=== PATIENT | female | born 1960 | race Caucasian/White ===

== ENCOUNTER 2021-11-21 08:42 | Outpatient (REF) | payer OTHER, SELFPAY ==
[2021-11-21 11:33] LABS: MANUAL DIFF FLAG NO
[2021-11-21 11:40] LABS: Basophils Percent Auto 0.5 % (0-2); Eosinophils Percent Auto 0.7 % (0-4); Hematocrit 40.1 % (37.0-47.0); Hemoglobin 12.9 g/dl (12.0-16.0); Imm Gran Abs Auto 0.01 X10*3/uL (0.00-0.03); Imm Gran Pct Auto 0.2 % (0.0-0.4); Lymphocytes Absolute Auto 2.7 X10*3/uL (1.2-4.9); Lymphocytes Percent Auto 48.4 % (20-40); Mean Corpuscular HGB Conc 32.2 g/dl (31.0-35.0); Mean Corpuscular Hemoglobin 29.9 pg (27.0-33.0); Mean Corpuscular Volume 92.8 fL (80.0-98.0); Mean Platelet Volume 12.3 fL (9.4-12.3); Monocytes Absolute Auto 0.4 X10*3/uL (0.1-1.2); Monocytes Percent Auto 7.8 % (2-11); Neutrophils Absolute Auto 2.4 x10*3/uL (2.0-8.3); Neutrophils Percent Auto 42.4 % (45-73); Platelet Count 252 X10*3/uL (160-400); Red Blood Count 4.32 X10*6/uL (4.20-5.50); Red Cell Distribution Width 13.5 % (11.0-16.0); White Blood Count 5.5 X10*3/uL (4.8-10.8)
[2021-11-21 11:53] LABS: Alanine Aminotransferase 13 U/L (0-31); Albumin Level 4.2 g/dL (3.5-5.0); Alkaline Phosphatase 102 U/L (39-117); Anion Gap 12 (12-20); Aspartate Amino Transferase 18 U/L (5-31); Bilirubin Total 0.5 mg/dL (0.0-1.0); Blood Urea Nitrogen 13 mg/dL (9-16); Calcium 9.7 mg/dL (8.4-10.2); Carbon Dioxide 23 mmol/L (22-29); Chloride 107 mmol/L (96-108); Cholesterol 288 mg/dL; Estimated Glomerular Filt Rate > 60; Glucose Fasting 95 mg/dL (60-99); HDL Cholesterol 51 mg/dL; LDL Cholesterol Calculated 208 mg/dl; Potassium 4.2 mmol/L (3.3-5.1); Sodium 138 mmol/L (135-145); Total Protein 7.6 g/dL (6.5-8.0); Triglycerides 149 mg/dL
[2021-11-21 12:16] LABS: TSH reflex Free T4 2.35 uIU/mL (0.32-4.0)
== END 2021-11-21 08:43 | disposition home or self-care (01) ==
LOC: HO.HMGCLDS 08:42
PROVIDERS: PCP Internal Medicine; Visit Provider Internal Medicine
DX: Z00.01 Encounter for general adult medical examination with abnormal findings (principal); L81.9 Disorder of pigmentation, unspecified
CPT/HCPCS: 36415; 80053; 80061; 84443; 85025

== ENCOUNTER 2021-12-19 10:15 | Outpatient (REF) | payer OTHER, SELFPAY ==
--- NOTE | ~2021-12-19 | MM_ITS ---
EXAMINATION: MM SCREENING DIGITAL BREAST TOMOSYNTHESIS, BILATERAL CLINICAL INFORMATION: Screening. Asymptomatic. The lifetime risk of breast cancer based on the Tyrer-Cuzick Model is 6%. COMPARISON: Outside mammography: 03/28/2019, 05/10/2017 ([facility]). TECHNIQUE: Digital breast tomosynthesis is performed in both the craniocaudal and mediolateral oblique views along with computer-aided detection (CAD). Synthesized 2D images are generated from the tomosynthesis. FINDINGS: There are scattered areas of fibroglandular density (ACR BI-RADS breast composition Category b). There are no significant masses, abnormal calcifications, or other abnormalities. Parenchymal pattern is similar to the prior outside exams. There is no developing density or architectural abnormality. The axilla and skin contours are unremarkable. No significant changes. MM/MM tomosynthesis screening BI IMPRESSION: No mammographic evidence of malignancy. ASSESSMENT: BI-RADS 1: Negative RECOMMENDATION: Routine annual mammography screening. This patient's information was entered into a reminder system with a target due date for their next mammogram.
== END 2021-12-19 10:16 | disposition home or self-care (01) ==
LOC: HO.MAMMO 10:15
PROVIDERS: Visit Provider Internal Medicine
DX: Z12.31 Encounter for screening mammogram for malignant neoplasm of breast (principal)
CPT/HCPCS: 77063; 77067

== ENCOUNTER 2022-01-24 08:02 | Outpatient (REF) | payer OTHER, SELFPAY ==
[2022-01-24 12:14] LABS: Alanine Aminotransferase 17 U/L (0-31); Albumin Level 4.2 g/dL (3.5-5.0); Alkaline Phosphatase 109 U/L (39-117); Aspartate Amino Transferase 23 U/L (5-31); Bilirubin Direct 0.2 mg/dL (0.0-0.5); Bilirubin Total 0.4 mg/dL (0.0-1.0); Cholesterol 120 mg/dL; HDL Cholesterol 45 mg/dL; LDL Cholesterol Calculated 54 mg/dl; Total Protein 7.4 g/dL (6.5-8.0); Triglycerides 106 mg/dL
== END 2022-01-24 08:03 | disposition home or self-care (01) ==
LOC: HO.HMGCLDS 08:02
PROVIDERS: PCP Internal Medicine; Visit Provider Internal Medicine
DX: E78.9 Disorder of lipoprotein metabolism, unspecified (principal)
CPT/HCPCS: 36415; 80061; 80076

== ENCOUNTER 2023-06-04 06:53 | Outpatient (REF) | payer OTHER, SELFPAY | END 2023-06-04 06:54 | disposition home or self-care (01) | LOC: HO.HMGCLDS 06:53 | PROVIDERS: PCP Internal Medicine; Visit Provider Internal Medicine | DX: E78.9 Disorder of lipoprotein metabolism, unspecified (principal) | CPT/HCPCS: 36415; 80053; 80061; 85025 ==

== ENCOUNTER 2023-08-23 09:37 | Outpatient (AMB) | payer OTHER, SELFPAY ==
--- NOTE | 2023-08-23 09:59 | AM.OFFWIN_ITS ---
Intake Vital Signs 08/23/23 10:04 Weight 148 lb BP 128/74 Blood Pressure Location Rt brachial Position Sitting Pulse 93 Pulse Source Pulse Oximeter Pulse Oximetry (%) 97 Oxygen Delivery Method Room Air Intake Visit Reasons: EST/uti? Intake Note: Patient here for UTI which started Sunday and has tried a medicated duche which she states helped for a little while and then this morning she woke up her sx were back burning when urinating and lower abdomen discomfort. Patient Tobacco Use Status: Never used Tobacco Allergies No Known Allergies Allergy (Verified 08/23/23 10:06) Do you need a note to return to daycare/school/sports/work: No HPI HPI Comments History of Present Illness Details 63-year-old female who presents for urin charissa symptoms. Patient experiencing increased frequency burning pain with urination he was blood in the urine. Denies fevers or chills or back pain PFSH Family History Other Mental health disorder Social History Housing: House Patient Tobacco Use Status: Never used Tobacco e-Cigarette/Vaping Use: Never Used Current occupational status: unemployed Cognitive needs: No Hearing needs: No Vision needs: No Review of Systems Const All systems reviewed & are unremarkable except as noted in HPI and below Reports hematuria and Reports dysuria Physical Exam Vital Signs: Last Vital Signs Pulse 93 08/23/23 10:04 BP 128/74 08/23/23 10:04 Pulse Ox 97 08/23/23 10:04 Oxygen Delivery Method Room Air 08/23/23 10:04 Const General: cooperative, healthy appearing, no acute distress and alert GI Inspection: Yes normal to inspection Palpation (GI): Soft to palpation and nontender General: Yes no CVA tenderness Back/Spine/Pelvis Back: no CVA tenderness Results AMB Urinalysis, Automated UA Leukoctes 125 Ej/uL Last Edit by MOUSTAPHA Farah on 08/23/23 10: 12 UA Nitrite Negative Last Edit by MOUSTAPHA Farah on 08/23/23 10:12 UA Urobilinogen 0.2 mg/dL Last Edit by MOUSTAPHA Farah on 08/23/23 10:12 UA Protein 30 mg/dL Last Edit by Carlos Enrique [facility] on 08/23/23 10:12 UA pH 8.0 Last Edit by Carlos Enrique [facility] on 08/23/23 10:12 UA Blood 200 Venkat/uL Last Edit by Carlos Enrique [facility] on 08/23/23 10:12 UA Specific [place] 1.010 Last Edit by Carlos Enrique [facility] on 08/23/23 10:12 UA Ketone Negative Last Edit by Carlos Enrique [facility] on 08/23/23 10:12 UA Bilirubin 0 mg/dL Last Edit by Carlos Enrique [facility] on 08/23/23 10:12 UA Glucose 0 mg/dL Last Edit by Carlos Enrique [facility] on 08/23/23 10:12 Results Reviewed Results Reviewed: Laboratory Last Values Urine pH (Auto) 8.0 08/23/23 10:11 Specific [place] (Auto) 1.010 08/23/23 10:11 Urine Protein (Auto) 30 mg/dL 08/23/23 10:11 Glucose (UA)(Auto) 0 mg/dL 08/23/23 10:11 Urine Ketones (Auto) Negative 08/23/23 10:11 Urine Blood (Auto) 200 Venkat/uL 08/23/23 10:11 Urine Nitrite (Auto) Negative 08/23/23 10:11 Urine Bilirubin (Auto) 0 mg/dL 08/23/23 10:11 Urine Urobilinogen (Auto) 0.2 mg/dL 08/23/23 10:11 Leukocyte Esterase (Auto) 125 Ej/uL 08/23/23 10:11 Assessment & Plan Assessment & Plan (1) UTI (urinary tract infection): Code(s): N39.0 - Urinary tract infection, site not specified Qualifiers: Urinary tract infection type: acute cystitis Hematuria presence: with hematuria Qualified Code(s): N30.01 - Acute cystitis with hematuria Plan: VSS. No CVA tenderness examination urinalysis shows 2+ leuks with blood consistent with UTI will prescribe Keflex and Pyridium. Discharge instructions, follow up and treatment are discussed with patient in my usual fashion. Alternatives in treatment are also discussed. The patient will return for worsening symptoms or as needed. Advised that any labs/imaging ordered will be followed up on and contact made if further treatment needed. Counseled that patient's condition may require further evaluation and/or treatment. Symptoms of concern for worsening disorder discussed in detail in my customary manner. Patient does verbalize understanding of the plan, there are no apparent barriers to communication. The patient is given the opportunity to ask questions and have them answered to his/her satisfaction Orders: Orders AMB Urinalysis Automated Today Z13.9 - Encounter for screening, unspecified Medications: New cephalexin 500 mg PO BID 10 caps 0RF 5 days phenazopyridine (Pyridium) 100 mg PO TID PRN 6 tabs 0RF pain 6 doses Patient Instructions: You was seen and evaluated in the urgent care for UTI symptoms. Urinalysis was performed and was consistent with urinary tract infection. Prescribed an antibiotic please take as directed. Please return to the emergency department h er urgent care if you experience any new or worsening symptoms such as fever, back pain, worsening urinary symptoms, any concerns of assignments above. Coding Level of Care Code Est Pt Level 3 (91181) Diagnoses Acute cystitis with hematuria N30.01 Urinary tract infection type: acute cystitis Hematuria presence: with hematuria
[2023-08-23 10:04] VITALS: BP 128/74; PULSE 93; O2SAT 97
== END 2023-08-23 10:28 | disposition home or self-care (01) ==
PROVIDERS: PCP Internal Medicine; Visit Provider Physician Assistant
DX: N30.01 Acute cystitis with hematuria (principal)
CPT/HCPCS: 81003; 99213

== ENCOUNTER 2023-08-28 09:30 | Outpatient (AMB) | payer OTHER, SELFPAY ==
[2023-08-28 09:34] VITALS: BP 146/80; PULSE 69; O2SAT 96
--- NOTE | 2023-08-28 09:34 | MHC.PC.OV ---
Vital Signs 08/28/23 09:34 Weight 132 lb 4 oz BP 146/80 H Blood Pressure Location Rt brachial Position Sitting Pulse 69 Pulse Source Pulse Oximeter Pulse Oximetry (%) 96 Oxygen Delivery Method Room Air Intake Visit Reasons: Recurring UTI Allergies No Known Allergies Allergy (Verified 08/28/23 09:35) Medication List - Last Reconciled 08/28/23 by Cooper Wilcox MD No Known Home Meds Tobacco use date assessed: 08/28/23 Dental Screening Dental Screen Date: 08/28/23 Did you have a dental visit in the last 12 months?: Yes Did you have a dental problem in the last 6 months where you did not have access to dental care?: No Was dental information given to patient?: Patient has dentist HPI Recurring UTI HPI Details Patient is 63-year-old female who was evaluated 23 of August in walk-in clinic for possible UTI Patient was treated with cephalexin and Pyridium. She is feeling better but continued to have some discomfort suprapubic UA done shows small amount of blood as well. I have sent Macrobid for 3 days patient is to take 1 tablet b.i.d. and drink lots of water. She will come back for repeat UA after that. She is also requesting a referral to OBGYN which I have placed for her. PFSH Family History Other Mental health disorder Social History Housing: House Patient Tobacco Use Status: Never used Tobacco e-Cigarette/Vaping Use: Never Used Current occupational status: unemployed Cognitive needs: No Hearing needs: No Vision needs: No Questionnaire Thrive Questionnaire Date Thrive assessed: 05/25/23 AUDIT C Alcohol Use Questionnaire (AUDIT-C) 1. How often do you have a drink containing alcohol?: Never 3. How often do you have six or more drinks on one occasion?: Never Total Score: 0 Score Reviewed/Action Taken: Yes LETTY-7 AMB Questionnaire LETTY-7 Date LETTY - 7 assessed: 05/25/23 Source: Developed by Drs. Wenceslao Calvillo, Ciara Kaba, Bernardo Campos and colleagues, with an educational med from [employer]. Review of Systems Const Denies chills and Denies fever(s) ENT Denies epistaxis and Denies nasal discharge Card Denies chest pain Resp Denies chest congestion, Denies cough and Denies hemoptysis GI Denies diarrhea and Denies nausea Skin/Breast Denies rash Neuro Reports no additional complaints Psych Reports no additional complaints Endo Reports no additional complaints Physical exam (Primary Care) Vital Signs: Last Vital Signs Pulse 69 08/28/23 09:34 BP 146/80 H 08/28/23 09:34 Pulse Ox 96 08/28/23 09:34 Oxygen Delivery Method Room Air 08/28/23 09:34 Tobacco/Smoking Status: Tobacco use Status Tobacco use date assessed 08/28/23 08/28/23 09:35 Patient Tobacco Use Status Never used Tobacco 08/28/23 09:35 e-Cigarette/Vaping Use Never Used 08/28/23 09:35 Thrive Assessment: Date of Thrive Assessment Date Thrive assessed 05/25/23 08/28/23 09:35 Const General: cooperative, comfortable and no acute distress Orientation/consciousness: patient oriented x3 HENMT Head: Yes normocephalic Eyes General: appearance normal, both eyes and all related structures Neck Neck: Yes supple Resp Effort & Inspection: normal respiratory effort, no cough and no stridor Cardio Rhythm: regular rhythm Heart sounds: S1 normal heart sound present and S2 normal heart sound present GI Other: Mild discomfort suprapubic with deep pressure General: Yes no CVA tenderness Back/Spine/Pelvis Back: no CVA tenderness Skin General skin exam: turgor normal Neuro General: patient oriented x3, tone normal and moves all extremities Extrem Right lower extremity: no edema Left lower extremity: no edema Results AMB Urinalysis, Automated UA Leukoctes 0 Ej/uL Last Edit by Tc Miller CMA on 08/28/23 09:47 UA Nitrite Negative Last Edit by Tc Miller CMA on 08/28/23 09:47 UA Urobilinogen 0.2 mg/dL Last Edit by Tc Miller CMA on 08/28/23 09:47 UA Protein 0 mg/dL Last Edit by Tc Miller CMA on 08/28/23 09:47 UA pH 7.5 Last Edit by Tc Miller CMA on 08/28/23 09:47 UA Blood 10 Venkat/uL Last Edit by Tc Miller CMA on 08/28/23 09:47 UA Specific [place] 1.005 Last Edit by Tc Miller CMA on 08/28/23 09:47 UA Ketone Negative Last Edit by Tc Miller CMA on 08/28/23 09:47 UA Bilirubin 0 mg/dL Last Edit by Tc Miller CMA on 08/28/23 09:47 UA Glucose 0 mg/dL Last Edit by Tc Miller CMA on 08/28/23 09:47 Results Reviewed Results Reviewed: Laboratory Last Values Urine pH (Auto) 7.5 08/28/23 09:46 Specific [place] (Auto) 1.005 08/28/23 09:46 Urine Protein (Auto) 0 mg/dL 08/28/23 09:46 Glucose (UA)(Auto) 0 mg/dL 08/28/23 09:46 Urine Ketones (Auto) Negative 08/28/23 09:46 Urine Blood (Auto) 10 Venkat/uL 08/28/23 09:46 Urine Nitrite (Auto) Negative 08/28/23 09:46 Urine Bilirubin (Auto) 0 mg/dL 08/28/23 09:46 Urine Urobilinogen (Auto) 0.2 mg/dL 08/28/23 09:46 Leukocyte Esterase (Auto) 0 Ej/uL 08/28/23 09:46 Assessment and Plan Assessment & Plan (1) Blood in urine: Code(s): R31.9 - Hematuria, unspecified Qualifiers: Hematuria type: other microscopic Qualified Code(s): R31.29 - Other microscopic hematuria (2) Cystitis: Code(s): N30.90 - Cystitis, unspecified without hematuria (3) Suprapubic pain: Code(s): R10.2 - Pelvic and perineal pain Plan Patient is 63-year-old female who was evaluated 23 of August in walk-in clinic for possible UTI Patient was treated with cephalexin and Pyridium. She is feeling better but continued to have some discomfort suprapubic UA done shows small amount of blood as well. I have sent Macrobid for 3 days patient is to take 1 tablet b.i.d. and drink lots of water. She will come back for repeat UA after that. She is also requesting a referral to OBGYN which I have placed for her. Orders: Orders AMB Urinalysis Automated Today Z13.9 - Encounter for screening, unspecified UA CC w/rflx Micro + Cult Today N30.90 - Cystitis, unspecified without hematuria, R10.2 - Pelvic and perineal pain, R31.9 - Hematuria, unspecified Referrals [employer]ER Referral Z01.419 - Encounter for gynecological examination (general) (routine) without abnormal findings Medications: New nitrofurantoin monohyd/m-cryst 100 mg (Macrobid) must administer with a meal/food 100 mg PO Q12H 3 days 6 caps 0RF Coding Level of Care Code Est Pt Level 3 (72725) Diagnoses Other microscopic hematuria R31.29 Hematuria type: other microscopic Cystitis N30.90 Suprapubic pain R10.2
== END 2023-08-28 09:56 | disposition home or self-care (01) ==
PROVIDERS: PCP Internal Medicine; Visit Provider Internal Medicine
DX: R31.29 Other microscopic hematuria (principal); N30.90 Cystitis, unspecified without hematuria; R10.2 Pelvic and perineal pain; Z13.9 Encounter for screening, unspecified
CPT/HCPCS: 81003; 99213

== ENCOUNTER 2023-08-31 10:46 | Outpatient (REF) | payer OTHER, SELFPAY ==
[2023-08-31 13:10] LABS: Appearance Urine Clear; Color Urine Yellow; Glucose Urine UA Negative (Negative); Leukocyte Esterase Urine Trace (Negative); Nitrite Urine Negative (Negative); PH 6.5 (5.0-9.0); Specific Gravity - Urine <= 1.005 (1.005-1.025); UMIC TRIGGER UACC YES; Urine Blood Trace (Negative); Urine Ketones Negative (Negative); Urine Protein Negative (Neg-Trace)
[2023-08-31 13:13] LABS: Bacteria Urine None Seen (None Seen); Hyaline Casts Urine 0-2 /LPF (0-2); RBC Urine 0-2 /HPF (0-2); Squamous Epithelial Cell Urine 0-2 /HPF (0-2); WBC Urine 0-5 /HPF (0-5)
== END 2023-08-31 10:47 | disposition home or self-care (01) ==
LOC: HO.HMGCLDS 10:46
PROVIDERS: PCP Internal Medicine; Visit Provider Internal Medicine
DX: Z13.9 Encounter for screening, unspecified (principal); R82.90 Unspecified abnormal findings in urine
CPT/HCPCS: 81001

== ENCOUNTER 2023-09-11 08:36 | Outpatient (REF) | payer OTHER, SELFPAY ==
[2023-09-13 04:18] LABS: HPV mRNA E6/E7 rflx Not Detected (Not Detected)
== END 2023-09-11 08:37 | disposition home or self-care (01) ==
LOC: HO.LNP 08:36
PROVIDERS: PCP Internal Medicine; Visit Provider Obstetrics & Gynecology
DX: N95.0 Postmenopausal bleeding (principal); N84.1 Polyp of cervix uteri; R31.29 Other microscopic hematuria
CPT/HCPCS: 57500; 81002; 87086; 87624; 88142; 88305

== ENCOUNTER 2023-09-11 08:36 | Outpatient (AMB) | payer OTHER, SELFPAY ==
--- NOTE | 2023-09-11 08:52 | MHC.OFFVIS ---
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 Patient was diagnosed UTI finished course of antibiotics and is feeling better. Last co testing was in 08/12 was negative. Last screening mammogram was done at [facility] according the patient was negative few months ago. CT scan at [facility] on 08/29/2023 showed diffuse thickening of the bladder wall PFSH Family History Other Mental health disorder Social History Housing: House Patient Tobacco Use Status: Never used Tobacco e-Cigarette/Vaping Use: Never Used Current occupational status: unemployed Cognitive needs: No Hearing needs: No Vision needs: No Review of Systems Const All systems reviewed & are unremarkable except as noted in HPI and below Physical Exam Vital Signs: Last Vital Signs BP 124/82 09/11/23 08:58 BMI result Body Mass Index 22.7 General: Yes no CVA tenderness External Female Exam: normal external appearance and normal appearance of the urethra Speculum Exam - Vagina: normal appearance of the vagina, normal palpation, no lesions and no masses Speculum Exam - Cervix: normal appearance of the cervix, normal palpation, no lesions, no masses, nontender and Other cervical findings present (Endocervical polyp) Bimanual exam- vagina & uterus: normal bimanual exam, normal palpation, uterine size normal, normal palpation, uterine shape normal, No Cervical tenderness present and non-tender Bimanual Exam- Adnexa, other: normal adnexae Back/Spine/Pelvis Back: no CVA tenderness Office Procedures MANAGER GRANT Biopsy Before the procedure was started, discussed with the patient the procedure technique, alternatives & all the risks associated with the procedure including but not limited to: bleeding , infection, uterine perforation, injury to bladder, vessels, bowels, possible need for transfusion with all its risks, and others. All questions were answered, the patient verbalized understanding and signed the consent. Urine test done in the office was negative Using a long Maria M Clamp the endocervical polyp was grasped and twisted around till it came off, hemostasis was secured using pressure. The patient tolerated the procedure well. Instructions were given to the patient to call if bleeding, temp>100.4 occur. The patient verbalized understanding and agreed with the plan. This note was generated with a voice recognition program. Some errors may have been overlooked during the review of this note. Sometimes these errors may affect the content or meaning of a given sentence. 17978-Cdrbin of Cervix Procedure code (CPT) selection complete Assessment & Plan Assessment & Plan (1) Postmenopausal bleeding: Code(s): N95.0 - Postmenopausal bleeding Plan: Discussed with the patient the differential diagnosis of post menopausal bleeding with normal pelvic exam including but not limited to, endometrial hyperplasia, cancer, polyps and other causes; co testing done, recommended ultrasound to measure the endometrial stripe; discussed with the patient that if the endometrial thickness is 4 mm or less the negative predictive value of endometrial pathology is 99%, otherwise If endometrial thickness is more than 4 mm will proceed with endometrial sampling versus hysteroscopy D&C polypectomy depending on the ultrasound findings. Instructed the patient to schedule an ultrasound follow-up appointment in 2 weeks. All questions answered, the patient verbalized understanding and agreed with the plan. (2) Endocervical polyp: Code(s): N84.1 - Polyp of cervix uteri Plan: Discussed with the patient the finding on pelvic exam showing endocervical polyp. Recommended endocervical polypectomy, or pros and cons, risks and benefits of the procedure were discussed with the patient, the patient agreed to proceed with polypectomy, see procedure note. (3) Microscopic hematuria: Comment: Diffuse thickening of the bladder wall by CT scan on 08/29/2023 at [facility] Code(s): R31.29 - Other microscopic hematuria Plan: Urine dip in the office showed microscopic hematuria, will send urine for culture and refer the patient to urology given the patient's abnormal CT scan showing diffuse thickening of the bladder wall Orders: Orders AMB MANAGER GRANT Biopsy Today N84.1 - Polyp of cervix uteri US pelvic and transvaginal Today N95.0 - Postmenopausal bleeding Pap Smear Today N84.1 - Polyp of cervix uteri, N95.0 - Postmenopausal bleeding Surgical Today N84.1 - Polyp of cervix uteri, N95.0 - Postmenopausal bleeding Referrals Urology Referral R31.29 - Other microscopic hematuria Coding Level of Care Code New Pt Level 3 (36695) Diagnoses Postmenopausal bleeding N95.0 Endocervical polyp N84.1 Microscopic hematuria R31.29 CPT Codes MANAGER GRANT Biopsy - CPT: 67945-Gvejjh of Cervix ([id number])
[2023-09-11 08:58] VITALS: BP 124/82; BMI 22.7
== END 2023-09-11 09:54 | disposition home or self-care (01) ==
PROVIDERS: PCP Internal Medicine; Visit Provider Obstetrics & Gynecology
DX: N95.0 Postmenopausal bleeding (principal); N84.1 Polyp of cervix uteri; R31.29 Other microscopic hematuria
CPT/HCPCS: 57500; 99203

== ENCOUNTER 2023-09-11 10:52 | Outpatient (AMB) | payer OTHER, SELFPAY ==
--- NOTE | 2023-09-11 10:57 | MHC.PC.OV ---
Vital Signs 09/11/23 10:58 Height 5 ft 3 in Weight 132 lb BMI 23.4 BP 108/72 Blood Pressure Location Rt brachial Position Sitting Pulse 81 Pulse Source Pulse Oximeter Pulse Oximetry (%) 98 Oxygen Delivery Method Room Air Intake Visit Reasons: discuss referral for urology Allergies No Known Allergies Allergy (Verified 09/11/23 10:57) Medication List - Last Reconciled 09/11/23 by Cooper Wilcox MD No Known Home Meds Tobacco use date assessed: 09/11/23 Dental Screening Dental Screen Date: 09/11/23 Did you have a dental visit in the last 12 months?: Yes Did you have a dental problem in the last 6 months where you did not have access to dental care?: No Was dental information given to patient?: Patient has dentist HPI discuss referral for urology HPI Details Patient is 63-year-old female came in today to talk about need to see urologist Patient has been having burning sensation pelvic area off and on She had a urine test done August 28 which was normal but that night her discomfort got worse so she went to emergency room 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 She does not have any polyuria or dysuria no pelvic pain as well Urine done today shows small amount of blood I will be repeating urine test again in a week CT scan done at [facility] shows thick lining of bladder which need to be further evaluated by the Urology. PFSH Family History Other Mental health disorder Social History Housing: House Patient Tobacco Use Status: Never used Tobacco e-Cigarette/Vaping Use: Never Used Current occupational status: unemployed Cognitive needs: No Hearing needs: No Vision needs: No Questionnaire Thrive Questionnaire Date Thrive assessed: 05/25/23 AUDIT C Alcohol Use Questionnaire (AUDIT-C) 1. How often do you have a drink containing alcohol?: Never 3. How often do you have six or more drinks on one occasion?: Never Total Score: 0 Score Reviewed/Action Taken: Yes LETTY-7 AMB Questionnaire LETTY-7 Date LETTY - 7 assessed: 05/25/23 Source: Developed by Drs. Wenceslao Calvillo, Ciara Kaba, Bernardo Campos and colleagues, with an educational med from [employer]. Review of Systems Const Denies chills and Denies fever(s) ENT Denies epistaxis and Denies nasal discharge Card Denies chest pain Resp Denies chest congestion, Denies cough and Denies hemoptysis GI Denies diarrhea and Denies nausea Skin/Breast Denies rash Neuro Reports no additional complaints Psych Reports no additional complaints Endo Reports no additional complaints Physical exam (Primary Care) Vital Signs: Last Vital Signs Pulse 81 09/11/23 10:58 BP 108/72 09/11/23 10:58 Pulse Ox 98 09/11/23 10:58 Oxygen Delivery Method Room Air 09/11/23 10:58 BMI result Body Mass Index 23.4 Tobacco/Smoking Status: Tobacco use Status Tobacco use date assessed 09/11/23 09/11/23 10:59 Patient Tobacco Use Status Never used Tobacco 09/11/23 10:59 e-Cigarette/Vaping Use Never Used 09/11/23 10:59 Thrive Assessment: Date of Thrive Assessment Date Thrive assessed 05/25/23 09/11/23 10:59 Const General: cooperative, comfortable and no acute distress Orientation/consciousness: patient oriented x3 HENMT Head: Yes normocephalic Eyes General: appearance normal, both eyes and all related structures Neck Neck: Yes supple Resp Effort & Inspection: normal respiratory effort, no cough and no stridor Cardio Rhythm: regular rhythm Heart sounds: S1 normal heart sound present and S2 normal heart sound present Skin General skin exam: turgor normal Neuro General: patient oriented x3, tone normal and moves all extremities Extrem Right lower extremity: no edema Left lower extremity: no edema Results AMB Urinalysis Dipstick UR Leukocytes Trace Last Edit by Marissa George CMA on 09/11/23 10:36 UR Nitrite Negative Last Edit by Marissa George CMA on 09/11/23 10:36 UR Urobilinogen Normal Last Edit by Marissa George CMA on 09/11/23 10:36 UR Protein Negative Last Edit by Marissa George CMA on 09/11/23 10:36 UR Ph 7.0 Last Edit by Marissa George CMA on 09/11/23 10:36 UR Blood Small Last Edit by Marissa George CMA on 09/11/23 10:36 UR Specific [place] 1.005 Last Edit by Marissa George CMA on 09/11/23 10:36 UR Ketone Negative Last Edit by Marissa George CMA on 09/11/23 10:36 UR Bilirubin Negative Last Edit by Marissa George CMA on 09/11/23 10:36 UR Glucose Negative Last Edit by Marissa George CMA on 09/11/23 10:36 Assessment and Plan Assessment & Plan (1) Microscopic hematuria: Comment: Diffuse thickening of the bladder wall by CT scan on 08/29/2023 at [facility] Code(s): R31.29 - Other microscopic hematuria Plan Patient is 63-year-old female came in today to talk about need to see urologist Patient has been having burning sensation pelvic area off and on She had a urine test done August 28 which was normal but that night her discomfort got worse so she went to emergency room 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 She does not have any polyuria or dysuria no pelvic pain as well Urine done today shows small amount of blood I will be repeating urine test again in a week CT scan done at [facility] shows diffuse thickening of the bladder wall for that patient will need to see the urology. Orders: Referrals Urology Referral R31.29 - Other microscopic hematuria Coding Level of Care Code Est Pt Level 3 (21975) Diagnoses Microscopic hematuria R31.29
[2023-09-11 10:58] VITALS: BP 108/72; PULSE 81; O2SAT 98; BMI 23.4
== END 2023-09-11 11:18 | disposition home or self-care (01) ==
LOC: HO.HMGC 10:52
PROVIDERS: PCP Internal Medicine; Visit Provider Internal Medicine
DX: R31.29 Other microscopic hematuria (principal)
CPT/HCPCS: 99213

== ENCOUNTER 2023-09-18 08:57 | Outpatient (REF) | payer OTHER, SELFPAY ==
--- NOTE | ~2023-09-18 | XR_ITS ---
EXAMINATION: XR LUMBAR SPINE XR SACRUM/COCCYX CLINICAL INFORMATION: Low back pain, unspecified. COMPARISON: None available. TECHNIQUE: 3 views of the lumbar spine. 3 views of the sacrum/coccyx. FINDINGS: LUMBAR SPINE: Slight rightward curvature of the lumbar spine. Mild multilevel lumbar spondylosis with mild loss of disc space height at L5-S1. Lumbar vertebral body heights are preserved. Facet arthritis in the lower lumbar spine. Mild grade 1 anterolisthesis of L5 on S1 with possible spondylolisthesis. SACRUM/COCCYX: Small rounded pelvic calcifications are likely vascular. Mild degenerative changes in the bilateral sacroiliac joints. No gross displaced fracture of the sacrum/coccyx appreciated, although visualization severely limited due to overlying bone and soft tissue. XR/XR lumbar spine 2-3V IMPRESSION: 1. Mild multilevel lumbar spondylosis most notable at L5-S1. 2. Mild degenerative changes in the bilateral sacroiliac joints. 3. No gross displaced fracture of the sacrum/coccyx appreciated, although visualization severely limited due to overlying bone and soft tissue. Additional imaging with CT scan or MRI should be considered for better visualization as these modalities are much more sensitive for detection of fracture or other underlying pathology.
--- NOTE | ~2023-09-18 | XR_ITS ---
EXAMINATION: XR LUMBAR SPINE XR SACRUM/COCCYX CLINICAL INFORMATION: Low back pain, unspecified. COMPARISON: None available. TECHNIQUE: 3 views of the lumbar spine. 3 views of the sacrum/coccyx. FINDINGS: LUMBAR SPINE: Slight rightward curvature of the lumbar spine. Mild multilevel lumbar spondylosis with mild loss of disc space height at L5-S1. Lumbar vertebral body heights are preserved. Facet arthritis in the lower lumbar spine. Mild grade 1 anterolisthesis of L5 on S1 with possible spondylolisthesis. SACRUM/COCCYX: Small rounded pelvic calcifications are likely vascular. Mild degenerative changes in the bilateral sacroiliac joints. No gross displaced fracture of the sacrum/coccyx appreciated, although visualization severely limited due to overlying bone and soft tissue. XR/XR sacrum coccyx min 2V IMPRESSION: 1. Mild multilevel lumbar spondylosis most notable at L5-S1. 2. Mild degenerative changes in the bilateral sacroiliac joints. 3. No gross displaced fracture of the sacrum/coccyx appreciated, although visualization severely limited due to overlying bone and soft tissue. Additional imaging with CT scan or MRI should be considered for better visualization as these modalities are much more sensitive for detection of fracture or other underlying pathology.
[2023-09-18 11:25] LABS: Appearance Urine Clear; Color Urine Yellow; Glucose Urine UA Negative (Negative); Leukocyte Esterase Urine Trace (Negative); Nitrite Urine Negative (Negative); PH 7.5 (5.0-9.0); Specific Gravity - Urine <= 1.005 (1.005-1.025); UMIC TRIGGER UACC YES; Urine Blood Negative (Negative); Urine Ketones Negative (Negative); Urine Protein Negative (Neg-Trace)
[2023-09-18 11:29] LABS: Bacteria Urine None Seen (None Seen); Hyaline Casts Urine 0-2 /LPF (0-2); RBC Urine 0-2 /HPF (0-2); Squamous Epithelial Cell Urine 0-2 /HPF (0-2); WBC Urine 0-5 /HPF (0-5)
== END 2023-09-18 08:58 | disposition home or self-care (01) ==
LOC: HO.HMGCX 08:57
PROVIDERS: PCP Internal Medicine; Visit Provider Internal Medicine
DX: M54.50 Low back pain, unspecified (principal); Z13.9 Encounter for screening, unspecified
CPT/HCPCS: 72100; 72220; 81001

== ENCOUNTER 2023-09-18 10:03 | Outpatient (AMB) | payer OTHER, SELFPAY ==
[2023-09-18 10:04] VITALS: BP 144/80; PULSE 74; O2SAT 98; BMI 23.4
--- NOTE | 2023-09-18 10:04 | MHC.PC.OV ---
Vital Signs 09/18/23 10:04 Height 5 ft 3 in Weight 132 lb BMI 23.4 BP 144/80 H Blood Pressure Location Lt brachial Position Sitting Pulse 74 Pulse Source Pulse Oximeter Pulse Oximetry (%) 98 Oxygen Delivery Method Room Air Intake Visit Reasons: Back Pain ~ Allergies No Known Allergies Allergy (Verified 09/18/23 10:05) Medication List - Last Reconciled 09/18/23 by Cooper Wilcox MD No Known Home Meds Tobacco use date assessed: 09/18/23 Dental Screening Dental Screen Date: 09/18/23 Did you have a dental visit in the last 12 months?: Yes Did you have a dental problem in the last 6 months where you did not have access to dental care?: No Was dental information given to patient?: Patient has dentist HPI Back Pain ~ HPI Details Patient came in today to be evaluated for pelvic pain and lower back pain Patient had procedure done through her OBGYN for cervical growth 10 days ago She continued to still have yellowish vaginal discharge and some bleeding Patient says that she feels twinges of pain in vaginal area and suprapubic She is also complaining of pain lower back and sacral area Urine test done today shows slight amount of blood and leuk Estrace I am treating her with antibiotic She has appointment with the urologist coming up next month patient have thick bladder lining that needs to be evaluated X-ray for lumbar spine and sacrum ordered I have sent tramadol tablet for the pain Along with antibiotic. [facility] Family History Other Mental health disorder Social History Housing: House Patient Tobacco Use Status: Never used Tobacco e-Cigarette/Vaping Use: Never Used Current occupational status: unemployed Cognitive needs: No Hearing needs: No Vision needs: No Questionnaire PHQ-9 Over the last 2 weeks, how often have you been bothered by any of the following problems? 1. Little interest or pleasure in doing things: several days 2. Feeling down, depressed, or hopeless: not at all 3. Trouble falling or staying asleep, or sleeping too much: several days 4. Feeling tired or having little energy: more than half the days 5. Poor appetite or overeating: not at all 6. Feeling bad about yourself - or that you are a failure or have let yourself or your family down: not at all 7. Trouble concentrating on things, such as reading the newspaper or watching television: not at all 8. Moving or speaking so slowly that other people could have noticed. Or the opposite - being so fidgety or restless that you have been moving around a lot more than usual: several days 9. Thoughts that you would be better off or of hurting yourself in some way: not at all Total score: 5 Depression Screening Interpretation: Negative Depression Screening Done: Yes 69007 - PHQ-9 Billing: Yes Source: Developed by Drs. Wenceslao Calvillo, Ciara Kaba, Bernardo Campos and colleagues, with an educational med from [employer]. Thrive Questionnaire Date Thrive assessed: 05/25/23 LETTY-7 AMB Questionnaire LETTY-7 Date LETTY - 7 assessed: 05/25/23 Source: Developed by Drs. Wenceslao Calvillo, Ciara Kaba, Bernardo Campos and colleagues, with an educational med from [employer]. Review of Systems Const Denies chills and Denies fever(s) ENT Denies epistaxis and Denies nasal discharge Card Denies chest pain Resp Denies chest congestion, Denies cough and Denies hemoptysis GI Denies diarrhea and Denies nausea Skin/Breast Denies rash Neuro Reports no additional complaints Psych Reports no additional complaints Endo Reports no additional complaints Physical exam (Primary Care) Vital Signs: Last Vital Signs Pulse 74 09/18/23 10:04 BP 144/80 H 09/18/23 10:04 Pulse Ox 98 09/18/23 10:04 Oxygen Delivery Method Room Air 09/18/23 10:04 BMI result Body Mass Index 23.4 Tobacco/Smoking Status: Tobacco use Status Tobacco use date assessed 09/18/23 09/18/23 10:07 Patient Tobacco Use Status Never used Tobacco 09/18/23 10:07 e-Cigarette/Vaping Use Never Used 09/18/23 10:07 PHQ-9: PHQ-9 Score PHQ-9: Total score 5 09/18/23 11:44 Depression Screening Interpretation: Negative Thrive Assessment: Date of Thrive Assessment Date Thrive assessed 05/25/23 09/18/23 10:07 Const General: cooperative, comfortable and no acute distress Orientation/consciousness: patient oriented x3 [facility] Head: Yes normocephalic Eyes General: appearance normal, both eyes and all related structures Neck Neck: Yes supple Resp Effort & Inspection: normal respiratory effort, no cough and no stridor Cardio Rhythm: regular rhythm Heart sounds: S1 normal heart sound present and S2 normal heart sound present GI Abdomen image: 1. Discomfort with pressure Back/Spine/Pelvis Back/spine/pelvis image: 1. Site of pain but no pain with percussion Skin General skin exam: turgor normal Neuro General: patient oriented x3, tone normal and moves all extremities Extrem Right lower extremity: no edema Left lower extremity: no edema Results AMB Urinalysis, Automated UA Leukoctes 0 Ej/uL Last Edit by Jessica London CMA on 09/18/23 10:27 UA Nitrite Negative Last Edit by Jessica London CMA on 09/18/23 10:27 UA Urobilinogen 0.1 mg/dL Last Edit by Jessica London CMA on 09/18/23 10:27 UA Protein 0 mg/dL Last Edit by Jessica London CMA on 09/18/23 10:27 UA pH 7.0 Last Edit by Jessica London CMA on 09/18/23 10:27 UA Blood 10 Venkat/uL Last Edit by Jessica London CMA on 09/18/23 10:27 UA Specific [place] 1.010 Last Edit by Jessica London CMA on 09/18/23 10:27 UA Ketone Negative Last Edit by Jessica London CMA on 09/18/23 10:27 UA Bilirubin 0 mg/dL Last Edit by Jessica London CMA on 09/18/23 10:27 UA Glucose 0 mg/dL Last Edit by Jessica London CMA on 09/18/23 10:27 Results Reviewed Results Reviewed: Laboratory Last Values Urine pH (Auto) 7.0 09/18/23 10: Specific [place] (Auto) 1.010 09/18/23 10:26 Urine Protein (Auto) 0 mg/dL 09/18/23 10:26 Glucose (UA)(Auto) 0 mg/dL 09/18/23 10:26 Urine Ketones (Auto) Negative 09/18/23 10:26 Urine Blood (Auto) 10 Venkat/uL 09/18/23 10:26 Urine Nitrite (Auto) Negative 09/18/23 10:26 Urine Bilirubin (Auto) 0 mg/dL 09/18/23 10:26 Urine Urobilinogen (Auto) 0.1 mg/dL 09/18/23 10:26 Leukocyte Esterase (Auto) 0 Ej/uL 09/18/23 10:26 Assessment and Plan Assessment & Plan (1) Lower back pain: Code(s): M54.50 - Low back pain, unspecified Qualifiers: Back pain laterality: bilateral Chronicity: acute Sciatica presence: without sciatica Qualified Code(s): M54.50 - Low back pain, unspecified (2) Microscopic hematuria: Comment: Diffuse thickening of the bladder wall by CT scan on 08/29/2023 at [facility] Code(s): R31.29 - Other microscopic hematuria (3) Suprapubic pain: Code(s): R10.2 - Pelvic and perineal pain (4) Urinary bladder disorder: Code(s): N32.9 - Bladder disorder, unspecified (5) Vaginal discharge: Code(s): N89.8 - Other specified noninflammatory disorders of vagina Plan Patient came in today to be evaluated for pelvic pain and lower back pain Patient had procedure done through her OBGYN for cervical growth 10 days ago She continued to still have yellowish vaginal discharge and some bleeding Patient says that she feels twinges of pain in vaginal area and suprapubic She is also complaining of pain lower back and sacral area Urine test done today shows slight amount of blood and leuk Estrace I am treating her with antibiotic She has appointment with the urologist coming up next month patient have thick bladder lining that needs to be evaluated X-ray for lumbar spine and sacrum ordered I have sent tramadol tablet for the pain Along with antibiotic. Orders: Orders XR sacrum coccyx min 2V Today M54.50 - Low back pain, unspecified AMB Urinalysis Automated Today Z13.9 - Encounter for screening, unspecified XR lumbar spine 2-3V Today M54.50 - Low back pain, unspecified Medications: New tramadol 50 mg PO DAILY PRN 30 tabs 0RF pain 30 days levofloxacin 500 mg PO DAILY 5 tabs 0RF 5 days Coding Level of Care Code Est Pt Level 4 (53309) Diagnoses Acute bilateral low back pain without sciatica M54.50 Back pain laterality: bilateral Chronicity: acute Sciatica presence: without sciatica Microscopic hematuria R31.29 Suprapubic pain R10.2 Urinary bladder disorder N32.9 Vaginal discharge N89.8
== END 2023-09-18 12:14 | disposition home or self-care (01) ==
LOC: HO.HMGC 10:03
PROVIDERS: PCP Internal Medicine; Visit Provider Internal Medicine
DX: M54.50 Low back pain, unspecified (principal); R31.29 Other microscopic hematuria; R10.2 Pelvic and perineal pain; N32.9 Bladder disorder, unspecified; N89.8 Other specified noninflammatory disorders of vagina
CPT/HCPCS: 81003; 99214